=== PATIENT | female | born 1975 ===

== ENCOUNTER 2024-05-04 08:27 | Outpatient (CLI) | payer MEDICARE, SELFPAY ==
--- NOTE | 2024-05-04 08:35 | MR_ITS ---
WS: [id number] MRA HEAD TECHNIQUE: Axial 3-D TOF images obtained with axial images and axial, sagittal, and coronal 2-D refor matted images. CLINICAL INFORMATION: PULSATILE TINNITUS, L EAR COMPARISON: None. FINDINGS: Distal vertebral arteries are patent. Basilar artery is patent. Normal vascularity to the MANAGER ASSESSMENT territo ry bilaterally. Both ICAs are patent at the skull base. Hypoplastic RIGHT A1 segment. Anterior communicating artery i s patent. Normal vascularity to the CECILIO territory. Normal vascularity to the MCA territories bilatera lly. No evidence of proximal flow-limiting stenosis or aneurysm. MR/MR angio head wo con [id number] IMPRESSION: 1. Normal intracranial MRA. 2. No evidence of aberrant ICA.
--- NOTE | 2024-05-04 08:35 | MR_ITS ---
WS: [id number] MRI HEAD WITH CONTRAST TECHNIQUE: Sagittal T1, T2 axial, T2 axial FLAIR, axial susceptibility weighted imaging, axial diffus ion weighted images, and coronal T2 images were obtained. Pre and post-T1 axial and post T1 coronal i mages. ADC and FSPGR images. CLINICAL INFORMATION: PULSATILE TINNITUS/OTALGIA COMPARISON: None. FINDINGS: No evidence of restricted diffusion to suggest acute ischemia. Ventricular system and basal cisterns are patent. Normal josue-white differentiation. No suspicious intracranial signal abnormalities. No he mosiderin on the susceptibly weighted images. Normal optic chiasm and pituitary infundibulum. Tempora l lobes and hippocampal formations are normal in appearance. Normal posterior fossa. Normal vascular flow voids at the skull base. No extra-axial fluid collections. No evidence of mass or mass effect. S ecretions in the RIGHT maxillary sinus. Mastoid air cells are well aerated. No abnormal gadolinium enhancement. Normal dural venous sinuses. No evidence of enhancing IAC or CP a ngle mass. Trigeminal nerve root entry zones appear normal. MR/MR head wo/w con [id number] IMPRESSION: 1. No evidence of enhancing IAC or CP angle mass. 2. No abnormal intracranial enhancement. 3. No suspicious intracranial signal abnormalities. 4. Slight RIGHT maxillary sinusitis.
--- NOTE | 2024-05-04 08:35 | MR_ITS ---
WS: [id number] MR VENOGRAM WITHOUT GADOLINIUM ENHANCEMENT INDICATION: Pulsatile tinnitus TECHNIQUE: MR venogram without gadolinium enhancement with maximum intensity projection images. FINDINGS: Sagittal sinus is patent. Straight sinus is patent. Normal internal cerebral veins. Sigmoid sinuses and transverse sinuses are patent. Distal jugular veins are patent. Slightly high riding LEF T jugular bulb compared to the RIGHT. No evidence of jugular bulb dehiscence. No evidence of dural si nus thrombosis. MR/[place] [id number] IMPRESSION: 1. Normal dural venous sinuses. 2. No evidence of jugular bulb dehiscence. 3. Slightly high-riding LEFT jugular bulb compared to the RIGHT 4. No other suspicious findings.
[2024-05-04] MEDS: gadobenate dimeglumine 20 mL vial 10 ML IV (10:03)
== END 2024-05-04 08:28 | disposition home or self-care (01) ==
LOC: RAD 08:28
PROVIDERS: PCP Nurse Practitioner Family; Visit Provider Specialist
DX: H93.A2 Pulsatile tinnitus, left ear (principal)
CPT/HCPCS: 70544; 70553

== ENCOUNTER → 2025-04-18 08:09 | Outpatient (BNVA) | payer MEDICARE, SELFPAY | PROVIDERS: PCP Nurse Practitioner Family; Visit Provider Podiatrist Foot & Ankle Surgery | DX: M21.611 Bunion of right foot (principal); M21.612 Bunion of left foot; M20.12 Hallux valgus (acquired), left foot; M20.11 Hallux valgus (acquired), right foot; G89.29 Other chronic pain | CPT/HCPCS: 73630; 99204 ==

== ENCOUNTER 2025-05-29 09:40 | Outpatient (CLI) | payer MEDICARE, SELFPAY ==
--- NOTE | 2025-05-29 09:51 | XRR_ITS ---
PROCEDURE INFORMATION: Exam: XR Cervical Spine Exam date and time: 05/29/2025 9:58 AM Age: 49 years old Clinical indication: Radicular pain (radiculopathy); Cervical region; Prior surgery; Surgery date: 6+ months; Surgery type: Cervical fusion 13 years ago; Additional info: Cervical radiculopathy TECHNIQUE: Imaging protocol: Radiologic exam of the cervical spine. Views: 6 or more views. COMPARISON: MR head wo/w con [id number] 05/04/2024 9:32 AM FINDINGS: Bones/joints: No acute fracture or traumatic subluxation. There are anterior cervical discectomy and fusion hardware at C4-C6. Anterior fusion plate and screws are seen. There is no hardware complication. There is no evidence for instability of the spine on flexion and extension views. Soft tissues: Unremarkable. XR/XR cervical spine min 6V [id number] IMPRESSION: No acute fracture or traumatic subluxation. Status post anterior discectomy at C4-C6 without hardware complication.
== END 2025-05-29 09:41 | disposition home or self-care (01) ==
PROVIDERS: PCP Nurse Practitioner Family; Visit Provider Nurse Practitioner Family
DX: M54.12 Radiculopathy, cervical region (principal); Z98.890 Other specified postprocedural states
CPT/HCPCS: 72052

== ENCOUNTER → 2025-07-04 08:35 | Outpatient (BNVA) | payer MEDICARE, SELFPAY | PROVIDERS: PCP Nurse Practitioner Family; Visit Provider Podiatrist Foot & Ankle Surgery | DX: M20.12 Hallux valgus (acquired), left foot (principal); M20.11 Hallux valgus (acquired), right foot; G89.29 Other chronic pain; M24.571 Contracture, right ankle | CPT/HCPCS: 99214 ==